=== PATIENT | female | born 1960 | race Caucasian/White ===

== ENCOUNTER → 2020-07-06 08:34 | Outpatient (BNVA) | payer OTHER, SELFPAY | PROVIDERS: Visit Provider Internal Medicine | DX: Z76.89 Persons encountering health services in other specified circumstances (principal) ==

== ENCOUNTER → 2020-07-06 08:34 | Outpatient (BNVA) | payer MEDICARE, MEDICAID, OTHER, SELFPAY | PROVIDERS: Visit Provider Internal Medicine | DX: E04.2 Nontoxic multinodular goiter (principal); E55.9 Vitamin D deficiency, unspecified; E66.3 Overweight; Z98.890 Other specified postprocedural states | CPT/HCPCS: 99214; Q3014 ==

== ENCOUNTER 2020-07-14 07:58 | Outpatient (REF) | payer MEDICARE, SELFPAY ==
[2020-07-14 11:46] LABS: Albumin Level 4.5 g/dL (3.5-5.0); Calcium 9.5 mg/dL (8.4-10.2)
[2020-07-14 12:16] LABS: Free T4 (Free Thyroxine) 0.99 ng/dL (0.71-1.85); Vitamin D 25-OH Total 28.3 ng/mL (>30)
[2020-07-16 15:07] LABS: Calcium (PTHI) 9.8 mg/dL (8.6-10.4); PTHI 44 pg/mL (14-64)
== END 2020-07-14 07:59 | disposition home or self-care (01) ==
LOC: HO.HMGCLDS 07:58
PROVIDERS: PCP Internal Medicine; Visit Provider Internal Medicine
DX: E04.2 Nontoxic multinodular goiter (principal); E55.9 Vitamin D deficiency, unspecified; E66.3 Overweight; E78.5 Hyperlipidemia, unspecified; F32.9 Major depressive disorder, single episode, unspecified
CPT/HCPCS: 82040; 82306; 82310; 83970; 84439; 84443

== ENCOUNTER → 2020-08-22 11:56 | Outpatient (BNVA) | payer MEDICARE, MEDICAID, SELFPAY | PROVIDERS: Visit Provider Internal Medicine | DX: E04.2 Nontoxic multinodular goiter (principal); E55.9 Vitamin D deficiency, unspecified | CPT/HCPCS: Q3014 ==

== ENCOUNTER 2020-08-23 08:31 | Day surgery (SDC) | payer MEDICARE, OTHER, SELFPAY ==
[2020-08-17 13:13] VITALS: BMI 29.3
--- NOTE | 2020-08-22 11:55 | HO.ANESPROP2 ---
Documented by User: Maru Stapleton 08/22/20 11:56 HPI - Anesthesia Eval Consult details Narrative: 60yo F for Upper Endoscopy and Colonoscopy PMFSH Past Medical History Medical History Anxiety, generalized Arthritis Back pain Chronic GERD Depression History of postoperative nausea HLD (hyperlipidemia) Hx of osteopenia Knee pain, right Lab test negative for COVID-19 virus Lipid disorder Nontoxic multinodular goiter Overweight Vitamin D deficiency Family History Family History Sister Thyroid nodule Mother Diabetes Surgical History Surgical History H/O colonoscopy History of surgery on wrist History of thyroid surgery Social History Social History Alcohol intake: never Smoking Status: Never smoker Use of substances other than those prescribed or required for medical reasons: No Advance Directives Information Provided: No Meds Allergies Allergy/AdvReac Type Severity Reaction Status Date / Time No Known Allergies Allergy Verified 08/22/20 13:40 Home Medications Medication Instructions Recorded Confirmed Type omeprazole 20 mg capsule,delayed 20 mg PO DAILY 07/06/20 08/23/20 History release paroxetine HCl 30 mg tablet 30 mg PO DAILY 07/06/20 08/23/20 History simvastatin 40 mg tablet 40 mg PO BEDTIME 07/06/20 08/23/20 History bupropion HCl 150 mg tablet,12 hr 150 mg PO QAM 08/22/20 08/22/20 History sustained-release ibuprofen 400 mg tablet 400 mg PO DAILY PRN 08/22/20 08/22/20 History oxycodone 5 mg tablet mg PO PRN 08/22/20 08/22/20 History Exam Exam Date and Time: August 22, 2020 1155 Height,Weight and Vital Signs: Height 5 ft 4 in Weight 77.564 kg Pertinent Lab Results Pertinent Lab Results: Laboratory Tests 12/18/19 04/22/20 09:09 08:02 WBC 7.8 Hgb 15.2 Hct 46.9 Plt Count 256 Sodium 141 Potassium 4.1 Chloride 105 BUN 20 H Creatinine 0.69 Assessment and Plan Assessment Anesthesia Assessment: Chart Reviewed Documented by User: Arleth Osborne 08/23/20 09:21 [facility] Past Medical History Medical History Anxiety, generalized Arthritis Back pain Chronic GERD Depression History of postoperative nausea HLD (hyperlipidemia) Hx of osteopenia Knee pain, right Lab test negative for COVID-19 virus Lipid disorder Nontoxic multinodular goiter Overweight Vitamin D deficiency Family History Family History Sister Thyroid nodule Mother Diabetes Surgical History Surgical History H/O colonoscopy History of surgery on wrist History of thyroid surgery Social History Social History Alcohol intake: never Smoking Status: Never smoker Use of substances other than those prescribed or required for medical reasons: No Advance Directives Information Provided: No Meds Allergies Allergy/AdvReac Type Severity Reaction Status Date / Time No Known Allergies Allergy Verified 08/22/20 13:40 Home Medications Medication Instructions Recorded Confirmed Type omeprazole 20 mg capsule,delayed 20 mg PO DAILY 07/06/20 08/23/20 History release paroxetine HCl 30 mg tablet 30 mg PO DAILY 07/06/20 08/23/20 History simvastatin 40 mg tablet 40 mg PO BEDTIME 07/06/20 08/23/20 History bupropion HCl 150 mg tablet,12 hr 150 mg PO QAM 08/22/20 08/22/20 History sustained-release ibuprofen 400 mg tablet 400 mg PO DAILY PRN 08/22/20 08/22/20 History oxycodone 5 mg tablet mg PO PRN 08/22/20 08/22/20 History Exam Airway Mallampati Class: II TM Dist: >3cm Neck ROM: Full Loose/Missing/Broken Teeth: Yes and Upper Heart: RRR Lungs: CTA Assessment and Plan Assessment Anesthesia Assessment: Anesthesia Plan Discussed and Chart Reviewed Final Anesthetic Review NPO: Yes ASA Class: II Final Preanesthetic Review: Meds/Allgs Chart Reviewed, Consent Obtained/Reviewed and Anes Risks/Benef Reviewed Patient Risk: Low Procedure Risk: Intermediate Anesthetic Plan Anesthetic Plan: MAC: Disposition: Standard PACU
[2020-08-23 09:01] VITALS: BP 126/78; PULSE 68; RESP 18; TEMP 36.3; O2SAT 95
[2020-08-23] MEDS: Lactated Ringers 1,000 ML 100 ML IVCONT (09:17)
--- NOTE | 2020-08-23 09:19 | MHC.SHP ---
Pre-Procedural Eval Section B Chief Complaint: SCREENING,DYSPHAGIA Relevant Family History (Specify if Yes): No Relevant Social History: None Present Medications: see Short Stay Collaborative assessment Medical History: Significant History (Anxiety, generalized Arthritis Back pain Chronic GERD Depression History of postoperative nausea HLD (hyperlipidemia) Hx of osteopenia Knee pain, right Lab test negative for COVID-19 virus Lipid disorder Nontoxic multinodular goiter Overweight Vitamin D deficiency) History of Previous Operations: Relevant previous surgery/procedure and date(s) (wrist, thyroid surgery) Allergies: Allergies Allergy/AdvReac Type Severity Reaction Status Date / Time No Known Allergies Allergy Verified 08/22/20 13:40 Review of Systems Sugical H&P ROS: Negative: Constitution, Cardiovascular, Respiratory, Neurological, Psychiatric, Hem-Onc, Allergic/Immunologic, Gastrointestinal, Genitourinary, Musculoskeletal, Integumentary, Endocrine and Eyes/Ears/Nose/Throat Exam Surgical H&P Exam: Normal: HEENT, Normal: Heart, Normal: Lungs, Normal: Extremities, Normal: Abdomen, Normal: Skin and Normal: Neurological Plan Diagnosis/Plan: Unchanged Patient has been examined and remains a candidate for the planned procedure
--- NOTE | 2020-08-23 09:20 | PM.OP ---
Brief Operative Note Date of Service: 08/23/20 Pre-op diagnosis: colon screen, dysphagia Post-op diagnosis: same Procedure: see op note Surgeon: Celestine Olivares MD Anesthesia: MAC Estimated blood loss (mL): 0 Condition: stable Disposition: PACU
--- NOTE | 2020-08-23 10:11 | W.PM.OPN ---
Operative Note Operative Note Date of Service: 08/23/20 Narrative: Operative Information Procedure Description: EGD, Colonoscopy FLEXIBLE TRANSORAL UPPER GASTROINTESTINAL ENDOSCOPY AND COLONOSCOPY PROCEDURE NOTE UPPER ENDOSCOPY Consent: Indications for the procedure and potential complications of bleeding, perforation, reaction to medications and missed diagnosis were discussed with the patient and informed consent was obtained. Instrument: Olympus GIF H 190 J mid size upper endoscope Monitoring: Vital signs and clinical assessment, continuous EKG monitoring, Pulse oximetry, Carbon Dioxide monitoring and blood pressure monitoring were done throughout the procedure. Procedure: The patient was placed in the left lateral decubitis position and pre-procedure medications were administered and a bite block was placed. The endoscope was inserted into the mouth and advanced under direct vision to the third part of duodenum. A careful inspection was made as the upper endoscope was withdrawn including a retroflexed examination of the proximal stomach; Findings and interventions are described below. Findings: Larynx:normal, some resistance to passage of scope thru UES Esophagus: GE junction at 36 cm, diaphragm hiatus at 36 cm, susepcted short segment barretts, bx taken, 20 mm balloon dilated across UES and LES, no tears seen, random esophagus bx also taken Stomach: Patchy gastritis. Biopsies were obtained. Grade 2 flap valve on retroflexed examination of the cardia. Duodenum: Normal bulb and descending duodenum, Intervention: Biopsies as noted above, balloon dilation COLONOSCOPY Instrument: Olympus variable stiffness pediatric scope 190L Colonoscopy Monitoring: Vital signs and clinical assessment, continuous EKG monitoring, Pulse oximetry, Carbon Dioxide monitoring and blood pressure monitoring were done throughout the procedure. Colon withdrawal time was 9 minutes. Procedure: The patient was placed in the left lateral decubitis position and pre-procedure medications were administered. After a digital rectal examination of the ano-rectum, the video colonoscope was inserted into the rectum and advanced through the colon to the cecum/TI. The colonoscope was slowly withdrawn in a retrograde panoramic fashion and the colon mucosa was carefully examined including a retroflexed view of the rectum. Findings and interventions are described below. Procedure Difficulty: Findings: Terminal Ileum-normal Cecum:normal, few diverticula seen Ascending Colon: normal Transverse Colon -normal Descending Colon:normal Sigmoid Colon: normal Rectum: Retroflexion with large sized internal hemorrhoids, grade I Anorectum - normal Colon preparation: Conne[place] Bowel Preparation Scale Right colon; 3 Transverse colon: 2 Left colon; 1 (0 = Unprepared colon segment with mucosa not seen due to solid stool that cannot be cleared. 1 = Portion of mucosa of the colon segment seen, but other areas of the colon segment not well seen due to staining, residual stool and/or opaque liquid. 2 = Minor amount of residual staining, small fragments of stool and/or opaque liquid, but mucosa of colon segment seen well. 3 = Entire mucosa of colon segment seen well with no residual staining, small fragments of stool or opaque liquid) Impression and Post Procedure Diagnosis: Endoscopy Findings: gastritis esophageal stricture Colonoscopy Findings: internal hemorrhoids diverticulosis Plan: Await Pathology results, may need to increase PPI dose Repeat Colonoscopy in 5 years due to fair left sided prep or earlier if clinically indicated High fiber diet leaflet avoid straining at stool, epsom salts and sitz bath, anusol supps or cream prn Above findings were reviewed with the patient and relevant handouts were provided if indicated.
[2020-08-23 10:18] VITALS: BP 111/79; PULSE 88; RESP 13; TEMP 36.3; O2SAT 96
[2020-08-23 10:33] VITALS: BP 121/76; PULSE 69; RESP 14; O2SAT 94
[2020-08-23 10:46] VITALS: BP 131/82; PULSE 77; RESP 16; TEMP 36.3; O2SAT 95
--- NOTE | 2020-08-23 11:22 | HO.POSTANES ---
Post Anesthesia Evaluation Post Anesthesia Evaluation Vital Signs: Vital Signs Temp Pulse Resp BP Pulse Ox 08/23/20 10:46 97.3 F 77 16 131/82 95 08/23/20 10:33 69 14 121/76 94 08/23/20 10:18 97.3 F 88 13 111/79 96 08/23/20 09:01 97.4 F 68 18 126/78 95 Anesthesia: Monitored Mental Status: Awake Pain Control: Satisfactory Nausea/Vomiting: None Hydration: Adequate Anesthesia-Related Issues: No Anes. Related Issues
== END 2020-08-23 11:15 | disposition home or self-care (01) ==
PROVIDERS: PCP Internal Medicine; Visit Provider Internal Medicine Gastroenterology
PROC: (CPT 43239; principal; 2020-08-23 09:30)
DX: Z12.11 Encounter for screening for malignant neoplasm of colon (principal); K57.30 Diverticulosis of large intestine without perforation or abscess without bleeding; K64.0 First degree hemorrhoids; K22.2 Esophageal obstruction; K29.70 Gastritis, unspecified, without bleeding; K21.9 Gastro-esophageal reflux disease without esophagitis; Z79.899 Other long term (current) drug therapy
CPT/HCPCS: 43239; 43249; G0121; 88305; 88342

== ENCOUNTER → 2020-09-27 13:31 | Outpatient (BNVA) | payer OTHER, SELFPAY | PROVIDERS: PCP Internal Medicine; Visit Provider Nurse Practitioner | DX: Z76.89 Persons encountering health services in other specified circumstances (principal) ==

== ENCOUNTER 2020-09-29 10:02 | Outpatient (REF) | payer MEDICARE, MEDICAID, OTHER, SELFPAY ==
--- NOTE | 2020-09-29 | MM_ITS ---
EXAMINATION: MM SCREENING DIGITAL BREAST TOMOSYNTHESIS, BILATERAL CLINICAL INFORMATION: Screening. Asymptomatic. The lifetime risk of breast cancer based on the Tyrer-Cuzick Model is 5.3%. COMPARISON: Mammography: December 05, 2018 and studies dating back to October 16, 2016. TECHNIQUE: Digital breast tomosynthesis is performed in both the craniocaudal and mediolateral oblique views along with computer-aided detection (CAD). Synthesized 2D images are generated from the tomosynthesis. FINDINGS: There are scattered areas of fibroglandular density (ACR BI-RADS breast composition Category b). There is a stable region of architectural distortion seen within the lateral aspect of the left breast. No new abnormal dominant mass or suspicious grouping of microcalcifications identified. MM/MM tomosynthesis screening BI IMPRESSION: There are no significant changes from prior study. ASSESSMENT: BI-RADS 2: Benign RECOMMENDATION: Routine annual mammography screening. This patient's information was entered into a reminder system with a target due date for their next mammogram.
== END 2020-09-29 10:03 | disposition home or self-care (01) ==
LOC: HO.MAMMO 10:02
PROVIDERS: PCP Internal Medicine; Visit Provider Obstetrics & Gynecology
DX: Z12.31 Encounter for screening mammogram for malignant neoplasm of breast (principal)
CPT/HCPCS: 77063; 77067

== ENCOUNTER → 2020-12-07 10:58 | Outpatient (BNVA) | payer MEDICARE, SELFPAY | PROVIDERS: Visit Provider Internal Medicine | DX: Z13.89 Encounter for screening for other disorder (principal) | CPT/HCPCS: Q3014 ==

== ENCOUNTER 2020-12-13 09:04 | Outpatient (REF) | payer MEDICARE, MEDICAID, SELFPAY ==
[2020-12-13 11:02] LABS: Albumin Level 4.3 g/dL (3.5-5.0); Calcium 9.3 mg/dL (8.4-10.2)
[2020-12-14 16:36] LABS: Calcium (PTHI) 9.5 mg/dL (8.6-10.4); PTHI 54 pg/mL (14-64)
== END 2020-12-13 09:05 | disposition home or self-care (01) ==
LOC: HO.LAB 09:04
PROVIDERS: Absent Provider Internal Medicine; Visit Provider Internal Medicine
DX: E55.9 Vitamin D deficiency, unspecified (principal); E04.2 Nontoxic multinodular goiter
CPT/HCPCS: 36415; 82040; 82310; 83970; 84439; 84443

== ENCOUNTER → 2021-01-09 07:40 | Outpatient (BNVA) | payer MEDICARE, SELFPAY | PROVIDERS: Visit Provider Internal Medicine | DX: Z13.89 Encounter for screening for other disorder (principal) | CPT/HCPCS: Q3014 ==

== ENCOUNTER 2021-05-08 10:25 | Outpatient (REF) | payer MEDICARE, MEDICAID, SELFPAY ==
[2021-05-08 14:13] LABS: Free T4 (Free Thyroxine) 0.84 ng/dL (0.71-1.85); Thyroid Stimulating Hormone 3.04 uIU/mL (0.32-4.0); Vitamin D 25-OH Total 28.7 ng/mL (>30)
== END 2021-05-08 10:26 | disposition home or self-care (01) ==
LOC: HO.LAB 10:25
PROVIDERS: Visit Provider Internal Medicine
DX: E04.2 Nontoxic multinodular goiter (principal); E55.9 Vitamin D deficiency, unspecified; Z79.899 Other long term (current) drug therapy; Z01.419 Encounter for gynecological examination (general) (routine) without abnormal findings
CPT/HCPCS: 36415; 82306; 84439; 84443; Q3014

== ENCOUNTER → 2022-05-14 10:59 | Outpatient (BNVA) | payer MEDICARE, MEDICAID, SELFPAY | PROVIDERS: Visit Provider Internal Medicine | DX: E04.2 Nontoxic multinodular goiter (principal); E55.9 Vitamin D deficiency, unspecified | CPT/HCPCS: Q3014 ==

== ENCOUNTER 2022-05-17 16:24 | Outpatient (REF) | payer MEDICARE, MEDICAID, SELFPAY ==
--- NOTE | ~2022-05-17 | US_ITS ---
EXAMINATION: US THYROID CLINICAL INFORMATION: Nontoxic multinodular goiter. COMPARISON: Ultrasound-guided thyroid biopsy dated 08/20/2019. Ultrasound soft tissue head/neck thyroid dated 12/19/2018. TECHNIQUE: Linear transducer grayscale and color Doppler examination with attention to the region of the thyroid. FINDINGS: SIZE: Measurements of the solitary right thyroid lobe and nodules are given in sagittal, anteroposterior and transverse dimensions respectively. Right Thyroid Lobe: 4.5 x 1.5 x 2.0 cm, volume 7.1 mL. Previously 4.4 x 1.5 x 1.8 cm, volume 6.2 mL. Parenchyma: The gland echotexture is heterogeneous. Thyroid vascularity is normal. Left Thyroid Lobe: Surgically absent. Isthmus: 0.2 cm in maximum AP dimension. Previously 0.2 cm. Estimated total number of nodules greater than or equal to 1 cm: 0. Dried Yeast Supervisor nodules are described as follows: 1. Location: Right superior. Size: 0.6 x 0.5 x 0.5 cm, volume 0.07 mL. Previously: 0.6 x 0.4 x 0.5 cm, volume 0.06 mL. Nodule characteristics: Composition: Solid (2). Echogenicity: Isoechoic (1). Shape: Not taller than wide (0). Margins: Smooth (0). Echogenic Foci: Macrocalcifications (1). ACR TI-RADS total points: 4 ACR TI-RADS category: 4 No change. 2. Location: Right inferior. Size: 0.5 x 0.3 x 0.6 cm, volume 0.04 mL. Previously: 0.4 x 0.4 x 0.3 cm, volume 0.02 mL. Nodule characteristics: Composition: Spongiform (0). Echogenicity: Anechoic (0). Shape: Not taller than wide (0). Margins: Smooth (0). Echogenic Foci: None (0). ACR TI-RADS total points: 0 ACR TI-RADS category: 1 Significant change in size (>/= 20% in 2 dimensions and minimal increase of 2 mm or 50% or greater increase in volume): Yes. 3. Location: Right inferior. Size: 0.4 x 0.2 x 0.3 cm, volume 0.01 mL. Previously: 0.3 x 0.2 x 0.3 cm, volume 0.01 mL. Nodule characteristics: Composition: Cystic(0). ACR TI-RADS total points: 0 ACR TI-RADS category: 1 No change. US/US thyroid IMPRESSION: Post left thyroidectomy. Small right thyroid nodules. There is slight interval increase in size largest nodule right inferior. Otherwise small right nodules do not appear appreciably changed. ACR TI-RADS RECOMMENDATION REFERENCE: Ultrasound-guided fine-needle aspiration, followup ultrasound, no further follow up. * TR1 (0 point) and TR 2 (2 points): No FNA or follow up * TR3 (3 points): FNA if more than or equal to 2.5 cm in maximum dimension, followup ultrasound in 1, 3 and 5 years if 1.5 to 2.4 cm in maximum dimension. * TR4 (4-6 points): FNA if more than or equal to 1.5 cm in maximum dimension, followup ultrasound in 1, 2, 3 and 5 years if 1 to 1.4 cm in maximum dimension. * TR5 (more than or equal to 7 points): FNA if more than or equal to 1 cm in maximum dimension, followup ultrasound every year for 5 years if 0.5 to 0.9 cm in maximum dimension. * TR3, TR4 or TR5 nodules that are below the size threshold for follow up receive no follow up.
== END 2022-05-17 16:25 | disposition home or self-care (01) ==
LOC: HO.US 16:24
PROVIDERS: Visit Provider Internal Medicine
DX: E04.2 Nontoxic multinodular goiter (principal)
CPT/HCPCS: 76536

== ENCOUNTER 2023-01-30 13:03 | Outpatient (REF) | payer MEDICARE, MEDICAID, SELFPAY ==
[2023-01-30 14:52] LABS: Thyroid Stimulating Hormone 2.64 uIU/mL (0.32-4.0); Vitamin D 25-OH Total 28.4 ng/mL (>30)
== END 2023-01-30 13:04 | disposition home or self-care (01) ==
LOC: HO.LAB 13:03
PROVIDERS: Visit Provider Internal Medicine
DX: E04.2 Nontoxic multinodular goiter (principal); E55.9 Vitamin D deficiency, unspecified
CPT/HCPCS: 36415; 82306; 84439; 84443; 99212

== ENCOUNTER 2023-05-29 16:03 | Outpatient (REF) | payer MEDICARE, MEDICAID, SELFPAY ==
--- NOTE | ~2023-05-29 | US_ITS ---
EXAMINATION: US THYROID CLINICAL INFORMATION: Nontoxic multinodular goiter. COMPARISON: Ultrasound thyroid 05/17/2022. TECHNIQUE: Linear transducer vizcarra-scale and color Doppler examination with attention to the region of the thyroid. FINDINGS: SIZE: Measurements of the solitary right thyroid lobe and nodules are given in sagittal, anteroposterior and transverse dimensions respectively. Right Thyroid Lobe: 4.3 x 1.4 x 1.7 cm, volume 5.5 mL. Previously 4.5 x 1.5 x 2.0 cm, volume 7.1 mL. Parenchyma: The gland echotexture is homogeneous. Thyroid vascularity is normal. Left Thyroid Lobe: Surgically absent. Isthmus: 0.30 cm in maximum AP dimension. Previously 0.20 cm. Estimated total number of nodules greater than or equal to 1 cm: 0. Esol Instructor nodules are described as follows: 1. Location: Right superior. Size: 0.65 x 0.50 x 0.50 cm, volume 0.85 mL. Previously: 0.62 x 0.48 x 0.46 cm, volume 0.07 mL. Nodule characteristics: Composition: Solid (2). Echogenicity: Hypoechoic (2). Shape: Not taller than wide (0). Margins: Smooth (0). Echogenic Foci: Macrocalcifications (1). ACR TI-RADS total points: 5 Previous: 4 ACR TI-RADS category: 5 Previous: 4 Significant change in size (>/= 20% in 2 dimensions and minimal increase of 2 mm or 50% or greater increase in volume): No Change in features: No Change in ACR TI-RADS risk category: No 2. Location: Right mid. Size: 0.32 x 0.20 x 0.28 cm, volume 0.50 mL. Previously: 0.40 x 0.40 x 0.20 cm, volume 0.20 mL. Nodule characteristics: Composition: Spongiform (0). ACR TI-RADS total points: 0 Previous: 0 ACR TI-RADS category: 1 Previous: 1 3. Location: Right inferior. Size: 0.60 x 0.50 x 0.90 cm, volume 0.14 mL. Previously: 0.50 x 0.30 x 0.60 cm, volume 0.04 mL. Nodule characteristics: Composition: Spongiform (0). Echogenicity: Anechoic (0). Shape: Not taller than wide (0). Margins: Smooth (0). Echogenic Foci: None (0). ACR TI-RADS total points: 0 Previous: 0 ACR TI-RADS category: 1 Previous: 1 NODES: No lymphadenopathy is seen in the tissue surrounding the thyroid gland. US/US thyroid IMPRESSION: 1. Post left thyroidectomy. 2. A 0.7 cm right superior TR 4 nodule with macrocalcifications is not significantly changed. 3. Two additional subcentimeter cystic/spongiform nodules are minimally increased. 4. No new nodules meeting size criteria for FNA evaluation. Recommend continued follow-up by imaging. ACR TI-RADS RECOMMENDATION REFERENCE: Ultrasound-guided fine-needle aspiration, follow up ultrasound, no further followup. * TR1 (0 point) and TR2 (2 points): No FNA or followup * TR3 (3 points): FNA if more than or equal to 2.5 cm in maximum dimension, follow up ultrasound in 1, 3 and 5 years if 1.5 to 2.4 cm in maximum dimension. * TR4 (4-6 points): FNA if more than or equal to 1.5 cm in maximum dimension, follow up ultrasound in 1, 2, 3 and 5 years if 1 to 1.4 cm in maximum dimension. * TR5 (more than or equal to 7 points): FNA if more than or equal to 1 cm in maximum dimension, follow up ultrasound every year for 5 years if 0.5 to 0.9 cm in maximum dimension. * TR3, TR4 or TR5 nodules that are below the size threshold for follow up receive no followup.
== END 2023-05-29 16:04 | disposition home or self-care (01) ==
LOC: HO.US 16:03
PROVIDERS: Visit Provider Internal Medicine
DX: E04.2 Nontoxic multinodular goiter (principal)
CPT/HCPCS: 76536

== ENCOUNTER 2023-08-06 14:27 | Outpatient (REF) | payer MEDICARE, MEDICAID, SELFPAY ==
[2023-08-09 03:53] LABS: HPV mRNA E6/E7 rflx Not Detected (Not Detected)
== END 2023-08-06 14:28 | disposition home or self-care (01) ==
LOC: HO.LNP 14:27
PROVIDERS: Visit Provider Obstetrics & Gynecology
DX: Z01.419 Encounter for gynecological examination (general) (routine) without abnormal findings (principal)
CPT/HCPCS: 87624; 88142; G0101

== ENCOUNTER 2023-08-06 14:27 | Outpatient (AMB) | payer MEDICARE, MEDICAID, SELFPAY ==
[2023-08-06 14:45] VITALS: BP 126/70; BMI 34.2
--- NOTE | 2023-08-06 14:45 | A.OFFVIS_ITS ---
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 No complaints. Last Pap/HPV unknown Last Mammogram was BI-RADS 2 in 09/18 Last Colonoscopy was 3 years ago according to the patient [facility] Medical History History of postoperative nausea Arthritis Lab test negative for COVID-19 virus Back pain Hx of osteopenia Anxiety, generalized Lipid disorder Chronic GERD Knee pain, right Overweight Vitamin D deficiency HLD (hyperlipidemia) Nontoxic multinodular goiter Depression Surgical History Hx of tubal ligation History of esophagogastroduodenoscopy (EGD) H/O colonoscopy History of surgery on wrist History of thyroid surgery Family History Sister Thyroid nodule Mother Diabetes mellitus Stomach cancer Father Diabetes mellitus Social History Household Members: Significant Other Alcohol intake: never Patient Tobacco Use Status: Never used Tobacco Patient : No Female Reproductive History Menstrual Age of Menarche: 11 control method: permanent sterilization Total pregnancies: 3 Full term: 3 Number of Living Children: 3 Date of last pap smear: 05/03/20 (negative) Date of Mammogram: 09/29/20 Review of Systems Const All systems reviewed & are unremarkable except as noted in HPI and below Card Reports as per HPI Resp Reports as per HPI GI Reports as per HPI and Reports no additional complaints Reports as per HPI Physical Exam Vital Signs: Last Vital Signs BP 126/70 08/06/23 14:45 BMI result Body Mass Index 34.2 Const General: cooperative, healthy appearing and comfortable Chest Chest palpation & inspection: normal inspection of the chest and normal palpation of entire chest wall Breast/axilla inspection: normal inspection of the breasts and normal inspection of the axillae Breast/axilla palpation: normal palpation of the breasts, normal palpation of the axillae and no axillary lymphadenopathy Resp Effort & Inspection: normal respiratory effort Auscultation: clear to auscultation bilaterally Percussion: percussion normal Cardio Palpation: normal PMI Rate: regular rate Rhythm: regular rhythm Heart sounds: no murmurs and no rubs Peripheral pulses: Peripheral pulses 2+ throughout GI Inspection: Yes normal to inspection Palpation (GI): Soft to palpation, nontender, no guarding, not rigid and No hepatosplenomegaly present Percussion: Yes normal to percussion Auscultation: normal bowel sounds Rectal Exam - Female: deferred General: Yes bladder normal to palpation External Female Exam: No lesion Speculum Exam - Vagina: normal appearance of the vagina, normal palpation, normal vaginal discharge and not erythematous Speculum Exam - Cervix: normal appearance of the cervix and normal palpation Bimanual exam- vagina & uterus: normal bimanual exam, normal palpation, uterine size normal, bladder normal to palpation, consistency normal and normal palpation Bimanual Exam- Adnexa, other: normal adnexae, no masses and no tenderness Assessment & Plan Assessment & Plan (1) Well woman exam: Code(s): Z01.419 - Encounter for gynecological examination (general) (routine) without abnormal findings Plan: Co testing done Counseled the patient about the recommended dietary allowance of 1200 mg of Calcium & 800 IU of vitamin D. Mammogram ordered. Instructions given the patient to check with her GI when she is due for next screening colonoscopy Will order DEXA scan . The patient was instructed to perform monthly self-breast exams and to schedule a 2 week DEXA scan follow-up appointment and an annual exam in a year; All questions answered and the patient verbalized understanding. Orders: Orders Pap Smear Today Z01.419 - Encounter for gynecological examination (general) (routine) without abnormal findings MM screening mammo BI Today Z12.31 - Encounter for screening mammogram for malignant neoplasm of breast XR DEXA axial skeleton Today Z78.0 - Asymptomatic menopausal state Coding Level of Care Code Est Pt Prev Care 40-64y([id number]) Diagnoses Well woman exam Z01.419
== END 2023-08-06 15:20 | disposition home or self-care (01) ==
LOC: HO.HWS 14:28
PROVIDERS: Visit Provider Obstetrics & Gynecology
DX: Z01.419 Encounter for gynecological examination (general) (routine) without abnormal findings (principal)
CPT/HCPCS: G0101; Q0091

== ENCOUNTER 2023-09-05 12:57 | Outpatient (REF) | payer MEDICARE, MEDICAID, SELFPAY ==
--- NOTE | ~2023-09-05 | MM_ITS ---
EXAMINATION: MM SCREENING DIGITAL BREAST TOMOSYNTHESIS, BILATERAL CLINICAL INFORMATION: Screening. Asymptomatic. COMPARISON: Mammography: 09/29/2020, 12/05/2018, 11/21/2018, 05/21/2018, 05/20/2018, 11/11/2017, 10/16/2016. TECHNIQUE: Digital breast tomosynthesis is performed in both the craniocaudal and mediolateral oblique views along with computer-aided detection (CAD). Synthesized 2D images are generated from the tomosynthesis. FINDINGS: There are scattered areas of fibroglandular density (ACR BI-RADS breast composition Category b). There are several stable asymmetric densities in the left breast just above the nipple line, and laterally as well. These appear stable from prior exams. There is a stable asymmetry in the left breast laterally, unchanged from multiple prior exams and benign. These have been previously worked up. Otherwise, There are no suspicious masses, suspicious grouped calcifications, or areas of architectural distortion in either breast. The parenchymal pattern is stable from prior exams. MM/MM tomosynthesis screening BI IMPRESSION: No mammographic evidence of malignancy. Stable benign findings. ASSESSMENT: BI-RADS BI-RADS 2 - Benign Findings RECOMMENDATION: Routine annual mammography screening. 1 year F/U This examination should not preclude the clinical evaluation of a suspicious palpable abnormality. This patient's information was entered into a reminder system with a target due date for their next mammogram.
--- NOTE | ~2023-09-05 | MM_ITS ---
EXAMINATION: BONE DENSITOMETRY CLINICAL INDICATION: Asymptomatic menopausal state. COMPARISON: This is the patient's baseline examination. TECHNIQUE: Using a [employer] DXA System (software version: 13.1) manufactured by [employer], dual-energy x-ray absorptiometry was performed of the lumbar spine and left hip. The images are of good technical quality. Summary results are attached. FINDINGS: LEFT FEMUR, NECK: BMD 0.719 g/cm2, Z-score -1.2, T-score -2.3, osteopenia. LEFT FEMUR, TOTAL: BMD 0.791 g/cm2, Z-score -0.9, T-score -1.7, osteopenia. AP SPINE L1-L4: BMD 0.847 g/cm2, Z-score -1.7, T-score -2.8, osteoporosis. IDENTIFIED RISK FACTORS: Menopause. HISTORY OF FRACTURE: None listed. MEDICATIONS: None listed. MM/XR DEXA axial skeleton IMPRESSION: 1. DIAGNOSIS: Osteoporosis based on the lowest T-score value of -2.8 in the lumbar spine applying World Health Organization criteria. 2. 10-YEAR FRACTURE RISK PREDICTION, FRAX: According to the guidelines, FRAX calculation should only be performed on patients in the osteopenia bone density category. Therefore, FRAX was not performed on this patient. 3. Treatment Recommendations: NOF guidelines recommend consideration for treatment in postmenopausal women and men age 50 and older presenting with the following: -A hip or vertebral (clinical or morphometric) fracture. -T-score less than or equal to -2.5 at the femoral neck or spine after appropriate evaluation to exclude secondary causes. -Low bone mass at the hip or spine and a 10-year fracture probability by FRAX of greater than or equal to 3% for hip fracture or greater than or equal to 20% for major osteoporotic fracture based on the [place] adapted WHO algorithm. 4. Other Recommendations: All treatment decisions require clinical judgment and consideration of individual patient factors, including patient preferences, comorbidities, previous drug use, risk factors not captured in the FRAX model (e.g. frailty, falls, vitamin D deficiency, increased bone turnover, interval significant decline in bone density) and possible under or overestimation of fracture risk by FRAX. Additional medical evaluation for secondary cause of low bone mineral density may be appropriate. FUTURE SCAN RECOMMENDATION: People with diagnosed cases of osteoporosis or at high risk for fracture should have regular bone mineral density tests. For patients eligible for Medicare, routine testing is allowed once every 2 years. The testing frequency can be increased to one year for patients who have rapidly progressing disease, those who are receiving or discontinuing medical therapy to restore bone mass, or have additional risk factors.
== END 2023-09-05 12:58 | disposition home or self-care (01) ==
LOC: HO.MAMMO 12:57
PROVIDERS: Visit Provider Obstetrics & Gynecology
DX: Z12.31 Encounter for screening mammogram for malignant neoplasm of breast (principal); Z13.820 Encounter for screening for osteoporosis; Z78.0 Asymptomatic menopausal state
CPT/HCPCS: 77063; 77067; 77080

== ENCOUNTER → 2023-09-05 13:30 | Outpatient (BNV) | payer MEDICARE, MEDICAID, SELFPAY | PROVIDERS: Visit Provider Radiology Diagnostic Radiology | DX: Z12.31 Encounter for screening mammogram for malignant neoplasm of breast (principal) | CPT/HCPCS: 77063; 77067 ==

== ENCOUNTER 2023-10-02 12:55 | Outpatient (AMB) | payer MEDICARE, MEDICAID, SELFPAY ==
--- NOTE | 2023-10-02 13:01 | MHC.OFFVIS ---
Intake Vital Signs 10/02/23 13:03 Height 5 ft 1 in Weight 180 lb 12.465 oz BMI 34.2 BP 136/82 Intake Visit Reasons: DEXA Results Chromium Plater Required: No Information Interpreted: non-clinical & clinical Accompanied by: Self / Same As Patient Allergies No Known Allergies Allergy (Verified 10/02/23 13:04) Post menopausal: Yes HPI HPI Comments History of Present Illness Details The patient is presenting for follow up regarding DEXA scan results. T score @ spine and femoral Neck respectively were=-2.8 /-2.3 PFSH Medical History History of postoperative nausea Arthritis Lab test negative for COVID-19 virus Back pain Hx of osteopenia Anxiety, generalized Lipid disorder Chronic GERD Knee pain, right Overweight Vitamin D deficiency HLD (hyperlipidemia) Nontoxic multinodular goiter Depression Surgical History Hx of tubal ligation History of esophagogastroduodenoscopy (EGD) H/O colonoscopy History of surgery on wrist History of thyroid surgery Family History Sister Thyroid nodule Mother Diabetes mellitus Stomach cancer Father Diabetes mellitus Social History Household Members: Significant Other Alcohol intake: never Patient Tobacco Use Status: Never used Tobacco Female Reproductive History Menstrual Age of Menarche: 11 Review of Systems Const All systems reviewed & are unremarkable except as noted in HPI and below Reports as per HPI and Reports no additional complaints GI Reports no additional complaints Reports no additional complaints Physical Exam Vital Signs: Last Vital Signs BP 136/82 10/02/23 13:03 BMI result Body Mass Index 34.2 Assessment & Plan Assessment & Plan (1) Osteoporosis: Code(s): M81.0 - Age-related osteoporosis without current pathological fracture Plan: Discussed with the patient the DEXA results and FRAX risk. Discussed with the patient all the options for therapeutic treatment including mechanism of actions, risks and benefits of Bisphosphonates (benefits=osteoporosis prevention; Risks=GERD, osteonecrosis of jaw), Raloxifene, (benefits=osteoporosis prevention and breast ca risk reduction; Risks=DVT), Forteo. The patient decided to go ahead with Fosamax so instructions given to the pt on how to take the med: NPO x 30 minutes, large amount of water , stay upright x 30 minutes, inform her dentist of alendronate intake in case invasive dental work. Also Caltrate+D 600 mg x2/day was recommended to the patient. Medications: New alendronate 70 mg PO QWEEK 14 tabs 3RF Coding Level of Care Code Est Pt Level 3 (44783) Diagnoses Osteoporosis M81.0
[2023-10-02 13:03] VITALS: BP 136/82; BMI 34.2
== END 2023-10-02 14:26 | disposition home or self-care (01) ==
LOC: HO.HWS 12:55
PROVIDERS: Visit Provider Obstetrics & Gynecology
DX: M81.0 Age-related osteoporosis without current pathological fracture (principal)
CPT/HCPCS: 99213

== ENCOUNTER → 2023-10-02 12:55 | Outpatient (BNVA) | payer MEDICARE, MEDICAID, SELFPAY | PROVIDERS: Visit Provider Obstetrics & Gynecology | DX: M81.0 Age-related osteoporosis without current pathological fracture (principal) | CPT/HCPCS: 99212 ==

== ENCOUNTER 2024-05-19 11:03 | Outpatient (AMB) | payer MEDICARE, MEDICAID, SELFPAY ==
[2024-05-19 11:12] VITALS: BP 118/70; PULSE 72; BMI 34.0
--- NOTE | 2024-05-19 11:12 | MHC.OFFVIS ---
Vital Signs 05/19/24 11:12 Height 5 ft 1 in Weight 179 lb 14.355 oz BMI 34.0 BP 118/70 Blood Pressure Location Lt brachial Position Sitting Pulse 72 Pulse Source Pulse Oximeter Intake Visit Reasons: NTMNG-confirmed Intake Note: New patient present today for NTMNG office visit. Extract Wringer Required: No Accompanied by: Self / Same As Patient Allergies No Known Allergies Allergy (Verified 05/19/24 11:15) Medication List - Last Reconciled 05/19/24 by Oliva Espitia MD alendronate 70 mg PO QWEEK bupropion HCl SR 150 mg PO DAILY 90 days cholecalciferol (vitamin D3) 25 mcg PO DAILY 30 days ibuprofen 400 mg PO DAILY PRN lorazepam 0.5 mg PO TID PRN omeprazole 40 mg (2 x 20 mg) PO DAILY paroxetine HCl 30 mg PO DAILY simvastatin 40 mg PO DAILY HPI Comments Details: 64 YO F with no who is seen in F/U for multinodular thyroid. she was previously seeing Dr. Montero last visit 02/2023 HPI from prior visit She was complaining of dysphagia which prompted checking of thyroid US. This revealed a multinodular thyroid and she was subsequently referred to Endocrinology. She underwent FNA biopsy 08/20/19 of her L inferior 1.6 cm nodule, but was unable to tolerate more than 2 passes and felt acutely lightheaded. The procedure was aborted. 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 She opted to undergo a L hemithyroidectomy rather than have a repeat FNA biopsy. The patient underwent a left hemithyroidectomy by Dr. Hadley Hamilton 06/07/2020. Official surgical pathology revealed a multinodular goiter (the follicular nodular hyperplasia) with a dominant nodule, 2 cm in largest dimension, with focal calcification and cystic degeneration. There was also a single reactive lymph node. This was benign. Repeat thyroid US was completed 12/13/2020 and revealed a subcentimeter nodule within the R lobe. There is a hyperechoic mass within the L thyroid bed. This was completed at [facility], and images are unavailable for review. Repeat thyroid US completed 04/2022 revealed no evidence of a mass within the L thyroid bed. No significant changes in the nodules. Most recent US 04/2023 showed minimal increase in size of right subcemtimeter nodules Denies any symptoms of hyper or hypothyroidism currently. Reports feeling well today. Denies any history of head or neck irradiation. Denies any family history of thyroid cancer, but daughter does have Shreyas's disease. Laboratory Tests 12/13/20 12/13/20 09:30 09:30 Calcium 9.3 Albumin 4.3 TSH 3.50 Free T4 0.80 PTH Intact 54 Calcium (PTH Intact) 9.5 Review of systems Constitutional: no fevers, chills or weight loss HEENT: no changes in vision Cardiac: No chest pain, discomfort or palpitations. Pulmonary: No SOB GI:No abdominal pain, no nausea or vomiting, no anorexia, no blood in stool : no burning micturition, dysuria or increase in urinary frequency Neurologic: No dizziness, no weakness in extremities MSK: no back pain or joint stiffness Physical exam General: sitting comfortably in bed in no acute distress HEENT: normocephalic/atraumatic, moist oral mucosa Neck: supple, symmetrical, no thyromegaly , no dorsocervical or supraclavicular fat pads Cardiac: normal heart sounds Pulm: normal breath sounds B/L, no added breath sounds Abd: not distended, no tenderness Extremities: no edema, no signs of myxedema Neuro: AAO x3, Speech: normal, no facial droop, moving all 4 extremities Skin: no rash PFSH Medical History (Updated 05/19/24 @ 11:16 by Oliva Espitia MD) Multinodular goiter History of postoperative nausea Arthritis Lab test negative for COVID-19 virus Back pain Hx of osteopenia Anxiety, generalized Lipid disorder Chronic GERD Knee pain, right Overweight Vitamin D deficiency HLD (hyperlipidemia) Nontoxic multinodular goiter Depression Surgical History Hx of tubal ligation History of esophagogastroduodenoscopy (EGD) H/O colonoscopy History of surgery on wrist History of thyroid surgery Family History Sister Thyroid nodule Mother Diabetes mellitus Stomach cancer Father Diabetes mellitus Social History Household Members: Significant Other Alcohol intake: never Patient Tobacco Use Status: Never used Tobacco Female Reproductive History Menstrual Age of Menarche: 11 Physical Exam Vital Signs: Last Vital Signs Pulse 72 05/19/24 11:12 BP 118/70 05/19/24 11:12 BMI result Body Mass Index 34.0 Results Reviewed Results Reviewed: Laboratory Tests 05/08/21 01/30/23 12:40 13:49 TSH 3.04 2.64 Free T4 0.84 0.80 EXAMINATION: US THYROID 05/22 CLINICAL INFORMATION: Nontoxic multinodular goiter. COMPARISON: Ultrasound thyroid 05/17/2022. TECHNIQUE: Linear transducer vizcarra-scale and color Doppler examination with attention to the region of the thyroid. FINDINGS: SIZE: Measurements of the solitary right thyroid lobe and nodules are given in sagittal, anteroposterior and transverse dimensions respectively. Right Thyroid Lobe: 4.3 x 1.4 x 1.7 cm, volume 5.5 mL. Previously 4.5 x 1.5 x 2.0 cm, volume 7.1 mL. Parenchyma: The gland echotexture is homogeneous. Thyroid vascularity is normal. Left Thyroid Lobe: Surgically absent. Isthmus: 0.30 cm in maximum AP dimension. Previously 0.20 cm. Estimated total number of nodules greater than or equal to 1 cm: 0. 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 Location: Right superior. Size: 0.65 x 0.50 x 0.50 cm, volume 0.85 mL. Previously: 0.62 x 0.48 x 0.46 cm, volume 0.07 mL. Nodule characteristics: Composition: Solid (2). Echogenicity: Hypoechoic (2). Shape: Not taller than wide (0). Margins: Smooth (0). Echogenic Foci: Macrocalcifications (1). ACR TI-RADS total points: 5 Previous: 4 ACR TI-RADS category: 5 Previous: 4 Significant change in size (>/= 20% in 2 dimensions and minimal increase of 2 mm or 50% or greater increase in volume): No Change in features: No Change in ACR TI-RADS risk category: No 2. Location: Right mid. Size: 0.32 x 0.20 x 0.28 cm, volume 0.50 mL. Previously: 0.40 x 0.40 x 0.20 cm, volume 0.20 mL. Nodule characteristics: Composition: Spongiform (0). ACR TI-RADS total points: 0 Previous: 0 ACR TI-RADS category: 1 Previous: 1 3. Location: Right inferior. Size: 0.60 x 0.50 x 0.90 cm, volume 0.14 mL. Previously: 0.50 x 0.30 x 0.60 cm, volume 0.04 mL. Nodule characteristics: Composition: Spongiform (0). Echogenicity: Anechoic (0). Shape: Not taller than wide (0). Margins: Smooth (0). Echogenic Foci: None (0). ACR TI-RADS total points: 0 Previous: 0 ACR TI-RADS category: 1 Previous: 1 NODES: No lymphadenopathy is seen in the tissue surrounding the thyroid gland. US/US thyroid IMPRESSION: 1. Post left thyroidectomy. 2. A 0.7 cm right superior TR 4 nodule with macrocalcifications is not significantly changed. 3. Two additional subcentimeter cystic/spongiform nodules are minimally increased. 4. No new nodules meeting size criteria for FNA evaluation. Recommend continued follow-up by imaging. Assessment & Plan Assessment & Plan (1) Nontoxic multinodular goiter: Code(s): E04.2 - Nontoxic multinodular goiter Category: Medical Plan: Patient with a nontoxic multinodular thyroid. She underwent a left hemithyroidectomy 06/07/2020 because of FNA showing AUS and she could only tolerate 2 passes and no Afirma was done. Official surgical pathology was benign. Has been followed for right subcentimeter nodules. There has been minimal increase in size of these right thyroid nodules. One of them has microcalcifications the upper right 0.6 cm lobe nodule however appears low suspicion. We will have her repeat an ultrasound this area to see if there is any significant change in size. If it is stable, can space out her next ultrasound by 2-3 years. She will need annual TFTs. Plan: -ordered thyroid ultrasound -ordered TSH with reflex fT4 All of her questions were answered today. She is in agreement with this plan of care. I spent 30 minutes in reviewing the record, seeing the patient and documenting in the medical record. Plan See above Orders: Orders TSH reflex Free T4 Today E04.2 - Nontoxic multinodular goiter US thyroid Today E04.2 - Nontoxic multinodular goiter Patient Instructions: Get thyroid ultrasound done Get blood work done Follow up in one year Coding Level of Care Code Est Pt Level 4 (50709) Diagnoses Nontoxic multinodular goiter E04.2 Time Spent (min) 30
== END 2024-05-19 11:33 | disposition home or self-care (01) ==
PROVIDERS: Visit Provider Student in an Organized Health Care Education/Training Program
DX: E04.2 Nontoxic multinodular goiter (principal)
CPT/HCPCS: 99214

== ENCOUNTER → 2024-05-19 11:03 | Outpatient (BNVA) | payer MEDICARE, MEDICAID, SELFPAY | PROVIDERS: Visit Provider Student in an Organized Health Care Education/Training Program | DX: E04.2 Nontoxic multinodular goiter (principal) | CPT/HCPCS: 99212 ==

== ENCOUNTER 2024-05-19 11:35 | Outpatient (REF) | payer MEDICARE, MEDICAID, SELFPAY ==
[2024-05-19 13:58] LABS: TSH reflex Free T4 4.07 uIU/mL (0.32-4.0)
[2024-05-19 15:14] LABS: Free T4 (Free Thyroxine) 0.77 ng/dL (0.71-1.85)
== END 2024-05-19 11:36 | disposition home or self-care (01) ==
LOC: HO.10HDL 11:35
PROVIDERS: Visit Provider Student in an Organized Health Care Education/Training Program
DX: E04.2 Nontoxic multinodular goiter (principal)
CPT/HCPCS: 36415; 84439; 84443

== ENCOUNTER 2024-06-03 10:04 | Outpatient (REF) | payer MEDICARE, MEDICAID, SELFPAY ==
--- NOTE | ~2024-06-03 | US_ITS ---
EXAMINATION: US THYROID CLINICAL INFORMATION: Nontoxic multinodular goiter. COMPARISON: Thyroid ultrasound 05/29/2023. TECHNIQUE: Linear transducer grayscale and color Doppler examination with attention to the region of the thyroid. FINDINGS: SIZE: Measurements of the solitary right thyroid lobe and nodules are given in sagittal, anteroposterior and transverse dimensions respectively. Right Thyroid Lobe: 4.6 x 1.7 x 2.1 cm, volume 8.8 mL. Previously 4.3 x 1.4 x 1.7 cm, volume 5.5 mL. Parenchyma: The gland echotexture is homogeneous. Thyroid vascularity is normal. Left Thyroid Lobe: Surgically absent. Isthmus: 0.3 cm in maximum AP dimension. Previously 0.3 cm. Estimated total number of nodules greater than or equal to 1 cm: 0. Care Taker nodules are described as follows: 1. Location: Right superior. Size: 0.6 x 0.4 x 0.4 cm, volume 0.6 mL. Previously: 0.65 x 0.5 x 0.5 cm, volume 0.85 mL. Nodule characteristics: Composition: Solid (2). Echogenicity: Hypoechoic (2). Shape: Not taller than wide (0). Margins: Smooth (0). Echogenic Foci: Macrocalcifications (1). ACR TI-RADS total points: 5 Previous: 5 ACR TI-RADS category: 4 Previous: 4 Significant change in size (>/= 20% in 2 dimensions and minimal increase of 2 mm or 50% or greater increase in volume): No Change in features: No Change in ACR TI-RADS risk category: No 2. Location: Right mid. Size: 0.6 x 0.5 x 0.8 cm, volume 0.13 mL. Previously: 0.6 x 0.5 x 0.9 cm, volume 0.14 mL. Nodule characteristics: Composition: Spongiform (0). Echogenicity: Anechoic (0). Shape: Not taller than wide (0). Margins: Smooth (0). Echogenic Foci: None (0). ACR TI-RADS total points: 0 Previous: 0 ACR TI-RADS category: 1 Previous: 1 Significant change in size (>/= 20% in 2 dimensions and minimal increase of 2 mm or 50% or greater increase in volume): No Change in features: No Change in ACR TI-RADS risk category: No 3. Location: Right inferior. Size: 0.3 x 0.2 x 0.3 cm, volume 0.01 mL. Previously: 0.3 x 0.2 x 0.28 cm, volume 0.50 mL. Nodule characteristics: Composition: Spongiform (0). Echogenicity: Anechoic (0). Shape: Not taller than wide (0). Margins: Smooth (0). Echogenic Foci: None (0). ACR TI-RADS total points: 0 Previous: 0 ACR TI-RADS category: 1 Previous: 1 Significant change in size (>/= 20% in 2 dimensions and minimal increase of 2 mm or 50% or greater increase in volume): No Change in features: No Change in ACR TI-RADS risk category: No NODES: No lymphadenopathy is seen in the tissue surrounding the thyroid gland. US/US thyroid IMPRESSION: 1. Status post left thyroidectomy. 2. Stable subcentimeter TR-4 solid right upper lobe nodule with macrocalcifications. Recommend continued follow-up with imaging. 3. Unchanged subcentimeter additional cystic and spongiform nodules. 4. No discrete new nodules meeting size criteria for FNA evaluation. 5. No abnormal-appearing lymph nodes. Electronically signed by: Dana Resendiz MD 06/23/2024 04:59 PM EDT
== END 2024-06-03 10:05 | disposition home or self-care (01) ==
LOC: HO.US 10:04
PROVIDERS: Visit Provider Student in an Organized Health Care Education/Training Program
DX: E04.2 Nontoxic multinodular goiter (principal)
CPT/HCPCS: 76536

== ENCOUNTER 2024-09-10 13:04 | Outpatient (REF) | payer MEDICARE, MEDICAID, SELFPAY | END 2024-09-10 13:05 | disposition home or self-care (01) | LOC: HO.MAMMO 13:04 | PROVIDERS: PCP Student in an Organized Health Care Education/Training Program; Visit Provider Student in an Organized Health Care Education/Training Program | DX: Z12.31 Encounter for screening mammogram for malignant neoplasm of breast (principal) | CPT/HCPCS: 77063; 77067 ==

== ENCOUNTER → 2024-09-10 13:15 | Outpatient (BNV) | payer MEDICARE, MEDICAID, SELFPAY | PROVIDERS: PCP Student in an Organized Health Care Education/Training Program; Visit Provider Internal Medicine | DX: Z12.31 Encounter for screening mammogram for malignant neoplasm of breast (principal) | CPT/HCPCS: 77063; 77067 ==

== ENCOUNTER 2025-05-20 11:02 | Outpatient (AMB) | payer MEDICARE, MEDICAID, SELFPAY ==
--- NOTE | 2025-05-20 11:09 | MHC.OFFVIS ---
Vital Signs 05/20/25 11:12 Height 5 ft 7 in Weight 183 lb 3.266 oz BMI 28.7 BP 124/72 Blood Pressure Location Lt brachial Position Sitting Pulse 68 Pulse Source Pulse Oximeter Pulse Oximetry (%) 95 Oxygen Delivery Method Room Air Intake Visit Reasons: MNG Intake Note: Patient present today for MNG office visit. Primary Care Nurse Practitioner Required: Yes Primary Care Nurse Practitioner Language: Czech Primary Care Nurse Practitioner Services: Primary Care Nurse Practitioner Present Primary Care Nurse Practitioner Name: Zehra [phone] Information Interpreted: non-clinical & clinical Accompanied by: Self / Same As Patient Allergies No Known Allergies Allergy (Verified 05/20/25 11:15) Medication List - Last Reconciled 05/20/25 by Oliva Espitia MD alendronate 70 mg PO QWEEK bupropion HCl SR 150 mg PO DAILY 90 days cholecalciferol (vitamin D3) 25 mcg PO DAILY 30 days ibuprofen 400 mg PO DAILY PRN lorazepam 0.5 mg PO TID PRN omeprazole 40 mg (2 x 20 mg) PO DAILY paroxetine HCl 30 mg PO DAILY simvastatin 40 mg PO DAILY HPI Comments Details: 65 YO F with no who is seen in F/U for multinodular thyroid. HPI from prior visit She was complaining of dysphagia which prompted checking of thyroid US. This revealed a multinodular thyroid and she was subsequently referred to Endocrinology. She underwent FNA biopsy 08/20/19 of her L inferior 1.6 cm nodule, but was unable to tolerate more than 2 passes and felt acutely lightheaded. The procedure was aborted. 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 She opted to undergo a L hemithyroidectomy rather than have a repeat FNA biopsy. The patient underwent a left hemithyroidectomy by Dr. Hadley Hamilton 06/07/2020. Official surgical pathology revealed a multinodular goiter (the follicular nodular hyperplasia) with a dominant nodule, 2 cm in largest dimension, with focal calcification and cystic degeneration. There was also a single reactive lymph node. This was benign. Repeat thyroid US was completed 12/13/2020 and revealed a subcentimeter nodule within the R lobe. There is a hyperechoic mass within the L thyroid bed. This was completed at [facility], and images are unavailable for review. Repeat thyroid US completed 04/2022 revealed no evidence of a mass within the L thyroid bed. No significant changes in the nodules. Most recent US 04/2023 showed minimal increase in size of right subcemtimeter nodules Denies any symptoms of hyper or hypothyroidism currently. Reports feeling well today. Denies any history of head or neck irradiation. Denies any family history of thyroid cancer, but daughter does have Shreyas's disease. Interval history Ultrasound 06/03/2024 showed stable size of the right subcentimeter nodules. Blood work from 05/19/2024 showed TSH was mildly elevated at 4.07, free T4 0.77, we had asked her to do repeat blood work in 6 months but she never got that. Today feels well overall Laboratory Tests 12/13/20 12/13/20 09:30 09:30 Calcium 9.3 Albumin 4.3 TSH 3.50 Free T4 0.80 PTH Intact 54 Calcium (PTH Intact) 9.5 Physical exam General: sitting comfortably in bed in no acute distress HEENT: normocephalic/atraumatic, moist oral mucosa Neck: supple, symmetrical, no thyromegaly , no dorsocervical or supraclavicular fat pads Cardiac: normal heart sounds Pulm: normal breath sounds B/L, no added breath sounds Abd: not distended, no tenderness Extremities: no edema, no signs of myxedema Neuro: AAO x3, Speech: normal, no facial droop, moving all 4 extremities Skin: no rash Laboratory Tests 05/08/21 01/30/23 12:40 13:49 TSH 3.04 2.64 Free T4 0.84 0.80 Laboratory Tests 05/19/24 11:40 TSH 4.07 H Free T4 0.77 EXAMINATION: US THYROID 05/22 CLINICAL INFORMATION: Nontoxic multinodular goiter. COMPARISON: Ultrasound thyroid 05/17/2022. TECHNIQUE: Linear transducer vizcarra-scale and color Doppler examination with attention to the region of the thyroid. FINDINGS: SIZE: Measurements of the solitary right thyroid lobe and nodules are given in sagittal, anteroposterior and transverse dimensions respectively. Right Thyroid Lobe: 4.3 x 1.4 x 1.7 cm, volume 5.5 mL. Previously 4.5 x 1.5 x 2.0 cm, volume 7.1 mL. Parenchyma: The gland echotexture is homogeneous. Thyroid vascularity is normal. Left Thyroid Lobe: Surgically absent. Isthmus: 0.30 cm in maximum AP dimension. Previously 0.20 cm. Estimated total number of nodules greater than or equal to 1 cm: 0. Quality Systems Manager nodules are described as follows: 1. Location: Right superior. Size: 0.65 x 0.50 x 0.50 cm, volume 0.85 mL. Previously: 0.62 x 0.48 x 0.46 cm, volume 0.07 mL. Nodule characteristics: Composition: Solid (2). Echogenicity: Hypoechoic (2). Shape: Not taller than wide (0). Margins: Smooth (0). Echogenic Foci: Macrocalcifications (1). ACR TI-RADS total points: 5 Previous: 4 ACR TI-RADS category: 5 Previous: 4 Significant change in size (>/= 20% in 2 dimensions and minimal increase of 2 mm or 50% or greater increase in volume): No Change in features: No Change in ACR TI-RADS risk category: No 2. Location: Right mid. Size: 0.32 x 0.20 x 0.28 cm, volume 0.50 mL. Previously: 0.40 x 0.40 x 0.20 cm, volume 0.20 mL. Nodule characteristics: Composition: Spongiform (0). ACR TI-RADS total points: 0 Previous: 0 ACR TI-RADS category: 1 Previous: 1 3. Location: Right inferior. Size: 0.60 x 0.50 x 0.90 cm, volume 0.14 mL. Previously: 0.50 x 0.30 x 0.60 cm, volume 0.04 mL. Nodule characteristics: Composition: Spongiform (0). Echogenicity: Anechoic (0). Shape: Not taller than wide (0). Margins: Smooth (0). Echogenic Foci: None (0). ACR TI-RADS total points: 0 Previous: 0 ACR TI-RADS category: 1 Previous: 1 NODES: No lymphadenopathy is seen in the tissue surrounding the thyroid gland. US/US thyroid IMPRESSION: 1. Post left thyroidectomy. 2. A 0.7 cm right superior TR 4 nodule with macrocalcifications is not significantly changed. 3. Two additional subcentimeter cystic/spongiform nodules are minimally increased. 4. No new nodules meeting size criteria for FNA evaluation. Recommend continued follow-up by imaging. US THYROID 06/03/24 CLINICAL INFORMATION: Nontoxic multinodular goiter. COMPARISON: Thyroid ultrasound 05/29/2023. TECHNIQUE: Linear transducer grayscale and color Doppler examination with attention to the region of the thyroid. FINDINGS: SIZE: Measurements of the solitary right thyroid lobe and nodules are given in sagittal, anteroposterior and transverse dimensions respectively. Right Thyroid Lobe: 4.6 x 1.7 x 2.1 cm, volume 8.8 mL. Previously 4.3 x 1.4 x 1.7 cm, volume 5.5 mL. Parenchyma: The gland echotexture is homogeneous. Thyroid vascularity is normal. Left Thyroid Lobe: Surgically absent. Isthmus: 0.3 cm in maximum AP dimension. Previously 0.3 cm. Estimated total number of nodules greater than or equal to 1 cm: 0. Quality Systems Manager nodules are described as follows: 1. Location: Right superior. Size: 0.6 x 0.4 x 0.4 cm, volume 0.6 mL. Previously: 0.65 x 0.5 x 0.5 cm, volume 0.85 mL. Nodule characteristics: Composition: Solid (2). Echogenicity: Hypoechoic (2). Shape: Not taller than wide (0). Margins: Smooth (0). Echogenic Foci: Macrocalcifications (1). ACR TI-RADS total points: 5 Previous: 5 ACR TI-RADS category: 4 Previous: 4 Significant change in size (>/= 20% in 2 dimensions and minimal increase of 2 mm or 50% or greater increase in volume): No Change in features: No Change in ACR TI-RADS risk category: No 2. Location: Right mid. Size: 0.6 x 0.5 x 0.8 cm, volume 0.13 mL. Previously: 0.6 x 0.5 x 0.9 cm, volume 0.14 mL. Nodule characteristics: Composition: Spongiform (0). Echogenicity: Anechoic (0). Shape: Not taller than wide (0). Margins: Smooth (0). Echogenic Foci: None (0). ACR TI-RADS total points: 0 Previous: 0 ACR TI-RADS category: 1 Previous: 1 Significant change in size (>/= 20% in 2 dimensions and minimal increase of 2 mm or 50% or greater increase in volume): No Change in features: No Change in ACR TI-RADS risk category: No 3. Location: Right inferior. Size: 0.3 x 0.2 x 0.3 cm, volume 0.01 mL. Previously: 0.3 x 0.2 x 0.28 cm, volume 0.50 mL. Nodule characteristics: Composition: Spongiform (0). Echogenicity: Anechoic (0). Shape: Not taller than wide (0). Margins: Smooth (0). Echogenic Foci: None (0). ACR TI-RADS total points: 0 Previous: 0 ACR TI-RADS category: 1 Previous: 1 Significant change in size (>/= 20% in 2 dimensions and minimal increase of 2 mm or 50% or greater increase in volume): No Change in features: No Change in ACR TI-RADS risk category: No NODES: No lymphadenopathy is seen in the tissue surrounding the thyroid gland. US/US thyroid IMPRESSION: 1. Status post left thyroidectomy. 2. Stable subcentimeter TR-4 solid right upper lobe nodule with macrocalcifications. Recommend continued follow-up with imaging. 3. Unchanged subcentimeter additional cystic and spongiform nodules. 4. No discrete new nodules meeting size criteria for FNA evaluation. 5. No abnormal-appearing lymph nodes. [facility] Medical History (Updated 05/19/24 @ 11:16 by Oliva Espitia MD) Multinodular goiter History of postoperative nausea Arthritis Lab test negative for COVID-19 virus Back pain Hx of osteopenia Anxiety, generalized Lipid disorder Chronic GERD Knee pain, right Overweight Vitamin D deficiency HLD (hyperlipidemia) Nontoxic multinodular goiter Depression Surgical History Hx of tubal ligation History of esophagogastroduodenoscopy (EGD) H/O colonoscopy History of surgery on wrist History of thyroid surgery Family History Sister Thyroid nodule Mother Diabetes mellitus Stomach cancer Father Diabetes mellitus Social History Household Members: Significant Other Alcohol intake: never Patient Tobacco Use Status: Never used Tobacco Female Reproductive History Menstrual Age of Menarche: 11 Physical Exam Vital Signs: Last Vital Signs Pulse 68 05/20/25 11:12 BP 124/72 05/20/25 11:12 Pulse Ox 95 05/20/25 11:12 Oxygen Delivery Method Room Air 05/20/25 11:12 BMI result Body Mass Index 28.7 Assessment & Plan Assessment & Plan (1) Nontoxic multinodular goiter: Code(s): E04.2 - Nontoxic multinodular goiter Category: Medical Plan: Patient with a nontoxic multinodular thyroid. She underwent a left hemithyroidectomy 06/07/2020 because of FNA showing AUS and she could only tolerate 2 passes and no Afirma was done. Official surgical pathology was benign. Has been followed for right subcentimeter nodules. One of them has microcalcifications the upper right 0.6 cm lobe nodule however appears low suspicion. Ultrasound 06/03/2024 showed stable size of the right subcentimeter nodules. Blood work from 05/19/2024 showed TSH was mildly elevated at 4.07, free T4 0.77, we had asked her to do repeat blood work in 6 months but she never got that. Plan: -do TSH and free T4 today, we will reach out with the results -plan to repeat ultrasound of the thyroid in March 2026 prior to follow up in April 2026 -follow up in April 2026 Plan See above Orders: Orders Thyroid Stimulating Hormone Today E04.2 - Nontoxic multinodular goiter Free T4 (Free Thyroxine) Today E04.2 - Nontoxic multinodular goiter US thyroid 04/11/26 E04.2 - Nontoxic multinodular goiter Patient Instructions: Do ultrasound of the thyroid in March 2026, someone will call you to schedule this , please make sure this is done a few weeks before your next appointment with me in April 2026 Do blood work today , we will reach out with results Coding Level of Care Code Est Pt Level 3 (94035) Diagnoses Nontoxic multinodular goiter E04.2
[2025-05-20 11:12] VITALS: BP 124/72; PULSE 68; O2SAT 95; BMI 28.7
--- OUTSIDE RECORDS SUMMARY | 2025-05-20 12:40 | XMS_ITS | Encounter Summary ---
Author Organization [employer] Address [address] [place] [address] Care Team Providers Care Product Tester Name Role Phone Unavailable Primary Care Provider Unavailabl e Encounter Details Date Type Department Care Team (Latest Contact Info) Description 08/15/2021 Abstract [facility] CONVERSIONS Dental, Provider, DDS Social History Tobacco Use Types Packs/Day Years Used Date Smoking Tobacco: Never Assessed Comments Unknown Sex and Gender Information Value Date Recorded Sex Assigned at Female 07/30/2022 10:36 AM EDT Legal Sex Female 10:36 AM EDT Gender Identity Female 07/30/2022 10:36 AM EDT Sexual Orientation Choose not to disclose 2021 10:36 AM EDT documented as of this encounter Plan of Treatment Upcoming Encounters Date Type Department Care Team (Late st Contact Info) Description 08/02/2025 8:00 AM EST Office Visit [facility] ADULT DENTAL [address] [place] [address] Mimi Brunson documented as of this encounter Visit Diagnoses Not on filedocumented in this encounter
== END 2025-05-20 11:31 | disposition home or self-care (01) ==
LOC: HO.ENCR 11:03
PROVIDERS: Visit Provider Student in an Organized Health Care Education/Training Program
DX: E04.2 Nontoxic multinodular goiter (principal)
CPT/HCPCS: 99213

== ENCOUNTER → 2025-05-20 11:02 | Outpatient (BNVA) | payer MEDICARE, MEDICAID, SELFPAY | PROVIDERS: Visit Provider Student in an Organized Health Care Education/Training Program | DX: E04.2 Nontoxic multinodular goiter (principal) | CPT/HCPCS: 99212 ==

== ENCOUNTER 2025-05-20 11:33 | Outpatient (REF) | payer MEDICARE, MEDICAID, SELFPAY ==
[2025-05-20 13:55] LABS: Free T4 (Free Thyroxine) 0.83 ng/dL (0.71-1.85); Thyroid Stimulating Hormone 2.82 uIU/mL (0.32-4.0)
== END 2025-05-20 11:34 | disposition home or self-care (01) ==
LOC: HO.10HDL 11:33
PROVIDERS: Visit Provider Student in an Organized Health Care Education/Training Program
DX: E04.2 Nontoxic multinodular goiter (principal)
CPT/HCPCS: 36415; 84439; 84443

== ENCOUNTER 2025-09-16 13:33 | Outpatient (REF) | payer MEDICARE, MEDICAID, SELFPAY ==
--- OUTSIDE RECORDS SUMMARY | 2025-09-14 08:00 | XMS_ITS | Encounter Summary ---
Author Organization [employer] Address [address] [place] [address] Care Team Providers Care Binding End Stitcher Name Role Phone Unavailable Primary Care Provider Unavailabl e Reason for Visit * Reason Comments Routine Cleaning Dental Exam Encounter Details Date Type Department Care Team (Late st Contact Info) Description 09/14/2025 8:00 AM EST Office Visit [facility] ADULT DENTAL [address] [place] [address] Mimi Brunson Dental calculus (Primary Dx); Dental plaque Social History Tobacco Use Types Packs/Day Years Used Date Smoking Tobacco: Never Smokeless Tobacco: Never Alcohol Use Standard Drinks/Week Comments Defer 0 (1 standard drink = 0.6 oz pur e alcohol) Comments Unknown Sex and Gender Information Value Date Recorded Sex Assigned at Female 07/30/2022 10:36 AM EDT Legal Sex Female 10:36 AM EDT Gender Identity Female 07/30/2022 10:36 AM EDT Sexual Orientation Choose not to disclose 2021 10:36 AM EDT documented as of this encounter Last Filed Vital Signs Vital Sign Reading Time Taken Comments Blood Pressure 128/82 09/14/2025 8:16 AM EST Pulse - - Temperature - - Respiratory Rate - - Oxygen Saturation - - Inhaled Oxygen Concentration - - Weight - - Height - - Body Mass Index - - documented in this encounter Progress Notes * Mimi Brunson - 09/14/2025 8:00 AM EST Patient ID: Della Emanuel is a 65 y.o. female. Time Out: Timeout Date: 09/14/25, Timeout Time: 816 Location: [facility] Tooth: Maxilla and Mandible Procedure: Exam, X-rays, and Prophylaxis Verified the above with patient, sales assistant institutional sales, and provider. Confirmed via patient's chart, intraorally and by radiographs. Trim Machine Operator: not applicable Medical Hx: Vitals: Blood pressure 128/82. Medications, Med Hx reviewed with patient and updated in chart. Treatment Provided Dental procedures in this visit D1110 - PROPHYLAXIS - ADULT Full (Completed) Service provider: Mimi Brunson Billces[place] provider: Terrie Jacob DDS [id number] - CASE PRESENTATION, DETAILED AND EXTENSIVE TREATMENT PLANNING (Completed) Service provider: Mimi Brunson Billing provider: Terrie Jacob DDS [id number] - ORAL HYGIENE INSTRUCTIONS (Completed) Service provider: Mimi Brunson Billing provider: Terrie Jacob DDS [id number] - BITEWINGS - 4 RADIOGRAPHIC IMAGES (Completed) Service provider: Mimi Brunson Billing provider: Terrie Jacob DDS [id number] - INTRAORAL - PERIAPICAL FIRST RADIOGRAPHIC IMAGE (Completed) Service provider: Mimi Brunson Billing provider: Terrie Jacob DDS [id number] - INTRAORAL - PERIAPICAL EACH ADDITIONAL RADIOGRAPHIC IMAGE (Completed) Service provider: Mimi Brunson Billing provider: Terrie Jacob DDS Instruments Used: Ultrasonic Scalers, Hand Scalers, and Prophy angle Fluoride: N/A Oral Cancer Screening: No lesions Head/Neck Exam: No Lesions Calculus: Light and Generalized Plaque: Light and Generalized Stain: Light and Localized Bleeding: Light and Generalized Gingiva: Healthy, Perio Charting Completed, Bleeding on probing, and Recession- generalized OH: Good Perio Chart: Completed Dental exam done by Dr. Mcgraw. Oral hygiene instructions provided to patient including brushing technique and flossing. Recommendations: [place] two times daily, modified boyce technique, Floss daily, Electric toothbrush, Soft bristle toothbrush, [place] Tongue, Anti-sensitivity toothpaste Recall Frequency: 6 mo NV: Restorations Hygienist: Mimi Brunson RDH documented in this encounter Plan of Treatment Upcoming Encounters Date Type Department Care Team (Late st Contact Info) Description 10/08/2025 8:00 AM EST Office Visit [facility] ADULT DENTAL [address] [place] [address] Fred Mcgraw DDS [address] [place] [address] 03/16/2026 8:00 AM EDT Office Visit [facility] ADULT DENTAL [address] [place] [address] Mimi Brunson Scheduled Orders Name Type Priority Associated Diagnoses Orde r Schedule Full Full PROPHYLAXIS - ADULT Dental Routine [address] arting 09/14/2025 PERIODIC ORAL EVALUATION - ESTABLISHED PATIENT Dental Routine 1 Occurren matilde starting 09/14/2025 32 32 EXTRACTION, ERUPTED TOOTH OR EXPOSED ROOT (ELEVATION/FORCEPS REMOVAL) Dental Routine [address] arting 09/14/2025 19 B 19 B RESIN-BASED COMPOSITE - 1 SURF, POSTERIOR Dental Routine [address] arting 09/14/2025 20 B 20 B RESIN-BASED COMPOSITE - 1 SURF, POSTERIOR Dental Routine [address] arting 09/14/2025 16 16 EXTRACTION, ERUPTED TOOTH OR EXPOSED ROOT (ELEVATION/FORCEPS REMOVAL) Dental Routine [address] arting 09/14/2025 17 17 EXTRACTION, ERUPTED TOOTH OR EXPOSED ROOT (ELEVATION/FORCEPS REMOVAL) Dental Routine [address] arting 09/14/2025 documented as of this encounter Procedures Procedure Name Priority Date/Time Associated Diagnosis Comments Full PROPHYLAXIS - ADULT Routine 025 8:00 AM EST ORAL HYGIENE INSTRUCTIONS Routine 2024 8:00 AM EST INTRAORAL - PERIAPICAL FIRST RADIOGRAPHIC IMAGE Routine 09/14/2025 8:00 AM EST INTRAORAL - PERIAPICAL EACH ADDITIONAL RADIOGRAPHIC IMAGE Routine 09/14/2025 8:00 AM EST CASE PRESENTATION, DETAILED AND EXTENSIVE TREATMENT PLANNING Routine 09/14/2025 8:00 AM EST BITEWINGS - 4 RADIOGRAPHIC IMAGES Routine 09/14/2025 8:00 AM EST documented in this encounter Visit Diagnoses Diagnosis Dental calculus- Primary Accretions on teeth Dental plaque Accretions on teeth documented in this encounter
--- OUTSIDE RECORDS SUMMARY | 2025-09-16 17:42 | XMS_ITS | Clinical Summary ---
Author Organization [facility] [employer] Address [address] [place] [address] [address] [place] [address] Care Team Providers Care Correspondence Renew Clerk Name Role Phone Unavailable Primary Care Provider Unavailabl e Allergies No known active allergies Medications alendronate (Fosamax) 70 MG tablet 06/18/2024 Active amLODIPine (Norvasc) 2.5 MG tablet 06/29/2024 Active atorvastatin (Lipitor) 20 MG tablet 07/06/2024 Active omeprazole (PriLOSEC) [address] capsule 05/15/2024 Active Active Problems Problem Noted Date Diagnosed Date Abdominal pain 08/05/2024 Abnormal mammogram of left breast 08/05/2024 Degeneration of intervertebral disc of cervical region 08/05/2024 Dysphagia 08/05/2024 Gastroesophageal reflux disease 08/05/2024 Hyperlipidemia 08/05/2024 Impaired fasting glucose 08/05/2024 Left thyroid nodule 08/05/2024 Odynophagia 08/05/2024 Osteopenia 08/05/2024 Postop check 08/05/2024 Anxiety and depression 08/05/2024 Depression, major 08/05/2024 PTSD (post-traumatic stress disorder) 08/05/2024 Encounters Date Type Department Care Team Description 09/14/2025 8:00 AM EST Office Visit [facility] ADULT DENTAL [address] [place] [address] Mimi Brunson Dental calculus (Primary Dx); Dental plaque 09/14/2025 Telephone [facility] ADULT DENTAL [address] [place] [address] Fred Mcgraw DDS from Last 3 Months Social History Tobacco Use Types Packs/Day Years Used Date Smoking Tobacco: Never Smokeless Tobacco: Never Tobacco Cessation:Counseling Given: Not Answered Alcohol Use Standard Drinks/Week Comments Defer 0 (1 standard drink = 0.6 oz pur e alcohol) Comments Unknown Sex and Gender Information Value Date Recorded Sex Assigned at Female 07/30/2022 10:36 AM EDT Legal Sex Female 10:36 AM EDT Gender Identity Female 07/30/2022 10:36 AM EDT Sexual Orientation Choose not to disclose 2021 10:36 AM EDT Last Filed Vital Signs Vital Sign Reading Time Taken Comments Blood Pressure 128/82 09/14/2025 8:16 AM EST Pulse 60 07/31/2024 8:05 AM EDT Temperature - - Respiratory Rate - - Oxygen Saturation - - Inhaled Oxygen Concentration - - Weight - - Height - - Body Mass Index - - Plan of Treatment Upcoming Encounters Date Type Department Care Team (Late st Contact Info) Description 10/08/2025 8:00 AM EST Office Visit [facility] ADULT DENTAL [address] [place] [address] Fred Mcgraw, PATRICIO [address] [place] [address] 03/16/2026 8:00 AM EDT Office Visit [facility] ADULT DENTAL [address] [place] [address] Mimi Brunson Health Maintenance Due Date Last Done Comments CT Colonography 1958 Colonoscopy 1958 Colorectal Cancer Screening 1958 Depression Screening 1958 FIT DNA/Cologuard 1958 FIT 1958 FOBT 1958 SDOH Screening 1958 Sigmoidoscopy 1958 Alcohol/Substance Use Screening 1970 Hepatitis C Screening 1976 Mammogram 1998 COVID-19 Vaccine ( season) 2025 10/10/2021, 02/01/2021, 01/11/2021 Dental Oral Exam 08/01/2025 01/28/2025, 09/2023, 08/15/2021, Additional history exists Dental Prophylaxis 03/16/2026 09/14/2025, 0 01/28/2025, 07/31/2024, Additional history exists Tobacco Screening 09/14/2026 09/14/2025 Dental X-Ray: Bitewings 09/15/2026 09/14/20 25, 07/31/2024, 08/15/2021, Additional history exists Dental X-Ray: Full Mouth 08/01/2027 07/31/2024, 09/01 DTaP/Tdap/Td Vaccines (2 - Td or Tdap) 01/25/2032 01/24/2022, 09/30/2008, 10/12/1997 RSV Patients and Patients Aged 60 years or older (1 - 1-dose 75+ series) 2033 Pneumococcal Vaccine: 50+ Years Completed 02/19/2024 Zoster Vaccines Completed 06/20/2024, 02/19/2024 Influenza Vaccine Completed 08/14/2025, , 07/04/2023, Additional history exists HIB Vaccines Aged Out No longer eligi ble based on patient's age to complete this topic HPV Vaccines Aged Out No longer eligi ble based on patient's age to complete this topic Hepatitis A Vaccines Aged Out No long er eligible based on patient's age to complete this topic Hepatitis B Vaccines Aged Out No long er eligible based on patient's age to complete this topic IPV Vaccines Aged Out No longer eligi ble based on patient's age to complete this topic Meningococcal B Vaccine Aged Out No l onger eligible based on patient's age to complete this topic Meningococcal Vaccine Aged Out No tye delroy eligible based on patient's age to complete this topic RSV under 20 months Aged Out No longe r eligible based on patient's age to complete this topic Rotavirus Vaccines Aged Out No longer eligible based on patient's age to complete this topic Procedures Procedure Name Priority Date/Time Associated Diagnosis Comments INTRAORAL - PERIAPICAL EACH ADDITIONAL RADIOGRAPHIC IMAGE Routine 09/14/2025 8:00 AM EST INTRAORAL - PERIAPICAL FIRST RADIOGRAPHIC IMAGE Routine 09/14/2025 8:00 AM EST BITEWINGS - 4 RADIOGRAPHIC IMAGES Routine 09/14/2025 8:00 AM EST ORAL HYGIENE INSTRUCTIONS Routine 2024 8:00 AM EST CASE PRESENTATION, DETAILED AND EXTENSIVE TREATMENT PLANNING Routine 09/14/2025 8:00 AM EST Full PROPHYLAXIS - ADULT Routine 025 8:00 AM EST PERIODIC ORAL EVALUATION - ESTABLISHED PATIENT Routine 01/28/2025 8:00 AM EDT INTRAORAL - COMPLETE SERIES OF RADIOGRAPHIC IMAGES Routine 07/31/2024 8:00 AM EDT from Last 3 Months or Most Recently Relevant to Health Maintenance Insurance [facility] MEDICAID STAND ADULT
--- OUTSIDE RECORDS SUMMARY | 2025-09-16 17:42 | XMS_ITS | Encounter Summary ---
Author Organization [facility] [employer] [facility] Address [address] [place] [address] [address] [place] [address] Care Team Providers Care Animal Husbandry Technician Name Role Phone Unavailable Primary Care Provider Unavailabl e Encounter Details Date Type Department Care Team (Late st Contact Info) Description 09/14/2025 Telephone [facility] ADULT DENTAL [address], [place] [id number] Fred Mcgraw DDS [address] [place] [address] Social History Tobacco Use Types Packs/Day Years [...] AM EDT documented as of this encounter Miscellaneous Notes * Telephone Encounter - Tracee Vivas - 09/14/2025 3:09 PM EST Let pt know there's an opening for tomorrow at 8am but she cannot make it documented in this encounter Plan of Treatment Upcoming Encounters Date Type Department Care Team (Late st Contact Info) Description 10/08/2025 8:00 AM EST Office Visit [facility] ADULT DENTAL [address] [place] [address] Fred Mcgraw DDS [address] [place] [address] 03/16/2026 8:00 AM EDT Office Visit [facility] ADULT DENTAL [address] [place] [address] Mimi Brunson documented as of this encounter Visit Diagnoses Not on filedocumented in this encounter
--- OUTSIDE RECORDS SUMMARY | 2025-09-16 17:42 | XMS_ITS | Encounter Summary ---
Author Organization [facility] [employer] Address [address] [facility] [address] [place] [address] Care Team Providers Care Data Reviewer Name Role Phone Unavailable Primary Care Provider Unavailabl e Encounter Details Date Type Department Care Team (Latest Contact Info) Description 09/29/2019 Abstract [facility] CONVERSIONS Dental, Provider, DDS Social History Tobacco [...] Description 10/08/2025 8:00 AM EST Office Visit [facility] ADULT DENTAL [address] [place] [address] Fred Mcgraw DDS [address] [place] [address] 03/16/2026 8:00 AM EDT Office Visit [facility] ADULT DENTAL [address] [place] [address] Mimi Brunson documented as of this encounter Visit Diagnoses Not on filedocumented in this encounter
--- OUTSIDE RECORDS SUMMARY | 2025-09-16 17:42 | XMS_ITS | Encounter Summary ---
Author Organization [facility] [employer] Address [address] [facility] [address] [place] [address] Care Team Providers Care Special Education Preschool Teacher Name Role Phone Unavailable Primary Care Provider Unavailabl e Encounter Details Date Type Department Care Team (Latest Contact Info) Description 08/15/2021 Abstract [facility] CONVERSIONS Dental, Provider, DDS Social History [...] 8:00 AM EST Office Visit [facility] ADULT DENTAL [address] [place] [address] Fred Mcgraw DDS [address] [facility] [place] [address] 03/16/2026 8:00 AM EDT Office Visit [facility] ADULT DENTAL [address] [place] [address] Mimi Brunson documented as of this encounter Visit Diagnoses Not on filedocumented in this encounter
== END 2025-09-16 13:34 | disposition home or self-care (01) ==
LOC: HO.MAMMO 13:33
PROVIDERS: PCP Student in an Organized Health Care Education/Training Program; Visit Provider Student in an Organized Health Care Education/Training Program
DX: Z12.31 Encounter for screening mammogram for malignant neoplasm of breast (principal)
CPT/HCPCS: 77063; 77067

== ENCOUNTER → 2025-09-16 14:00 | Outpatient (BNV) | payer MEDICARE, MEDICAID, SELFPAY | PROVIDERS: PCP Student in an Organized Health Care Education/Training Program; Visit Provider Internal Medicine | DX: Z12.31 Encounter for screening mammogram for malignant neoplasm of breast (principal) | CPT/HCPCS: 77063; 77067 ==